=== PATIENT | male | born 1995 | race Caucasian/White ===

== ENCOUNTER 2017-11-18 07:58 | Emergency (ER) | payer OTHER ==
[~2017-11-18] VITALS: Ht 167.6 cm; Wt 86.2 kg
[2017-11-18] MEDS ORDERED: KEFLEX500 M1 PO (09:31)
[2017-11-18] MEDS ORDERED: NAPROSYN500 MG PO (09:31)
== END 2017-11-18 10:10 | disposition home or self-care (01) ==
LOC: ED 07:58
DX: S61.202A Unspecified open wound of right middle finger without damage to nail, initial encounter (principal); S61.204A Unspecified open wound of right ring finger without damage to nail, initial encounter; R03.0 Elevated blood-pressure reading, without diagnosis of hypertension; W23.0XXA Caught, crushed, jammed, or pinched between moving objects, initial encounter; Y93.89 Activity, other specified; Y92.89 Other specified places as the place of occurrence of the external cause; Y99.8 Other external cause status